=== PATIENT | female | born 1945 | race African-American/Black ===

== ENCOUNTER 2016-06-23 11:28 | Emergency (ER) | payer MEDICARE, OTHER ==
[~2016-06-23] VITALS: Ht 167.6 cm; Wt 92.7 kg
[~2016-06-23 11:28] MED LIST: APIX5TAB PO; FLUT1SPR20; LISI-515 PO; LOVA20TA PO; TIMO0.5S30 EACH EYE; VERA240T16 PO
[2016-06-23 11:31] VITALS: BP 184/102; PULSE 77; RESP 14; TEMP 97.5; O2SAT 96
--- NOTE | 2016-06-23 11:57 | PD ---
HPI Chief Complaint: Hypertension Time Seen by Provider: 11:56 Travel History International Travel<30 days: No Contact w/Intl Traveler<30days: No Traveled to known affect area: No History of Present Illness HPI 71-year-old female presents to the emergency department for evaluation of hypertension. She states that on Thursday, her blood pressure started racing. She states is anywhere from 145-165 systolic on Thursday and Thursday. However, this morning, continued to rise. She went to [facility] And they stated that she go to the emergency department due to her symptoms and blood pressure. She does report a headache. She currently rates a 5/10. She does report a history of chronic migraines and states this is similar. This is not the worst headache of her life. She denies any chest pain or shortness of breath. She is complaining of right leg pain. She was just on vacation in [place] and returned via car on Thursday. 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 Patient is currently on verapamil and lisinopril for blood pressure. She states she was on Eliquis, but is now on a baby aspirin daily. Patient denies any abdominal pain. No vomiting. PFSH Past Medical History Hx Anticoagulant Therapy: Yes Arthritis: Yes Asthma: No Autoimmune Disease: No Blood Disorders: No Anxiety: No Depression: No Heart Rhythm Problems: No Cancer: No Cardiovascular Problems: Yes (HIGH BP) High Cholesterol: No Chemotherapy: No Chest Pain: No Congestive Heart Failure: No COPD: No Cerebrovascular Accident: No Diabetes: No Diminished Hearing: No Deep Vein Thrombosis: Yes (right leg and PE) Endocrine: No Gastrointestinal Disorders: No GERD: No Glaucoma: Yes Genitourinary: No Headaches: Yes (Migraines) Hepatitis: No Hiatal Hernia: No Heparin Induced Thrombocytopen: No Hypertension: Yes Immune Disorder: No Inguinal Hernia: Yes (right side repair) Implanted Vascular Access Dvce: No Kidney Stones: No Musculoskeletal: Yes (Leg & back) Psychiatric: No Reproductive: No Respiratory: Yes (PE) Immunizations Current: Yes Migraines: Yes Myocardial Infarction: No Radiation Therapy: No Renal Failure: No Seizures: No Sickle Cell Disease: No Sleep Apnea: No Thyroid Disease: No Ulcer: No PNEUMOCCOCAL Vaccine (Year): 2010 Menopausal: Yes Tubal Ligation: Yes Past Surgical History Abdominal Surgery: Yes (HERNIA REPAIR) AICD: No Appendectomy: Yes Arteriovenous Shunt: No Cardiac Surgery: No Cholecystectomy: No Ear Surgery: No Endocrine Surgery: No Eye Surgery: Yes (Detached retina) Genitourinary Surgery: No Gynecologic Surgery: Yes (Hysterectomy) Hysterectomy: Yes Insulin Pump: No Joint Replacement: No Oral Surgery: No Pacemaker: No Thoracic Surgery: Yes Other Surgery: Yes Social History Alcohol Use: No Tobacco Use: No Substance Use: No Allergies-Medications (Allergen,Severity, Reaction): Coded Allergies: Tetanus Toxoid (Verified Allergy, Severe, RASH/HIVES, 05/22/16) Codeine (Verified Allergy, Intermediate, AMS, 05/22/16) *MDRO Multi-Drug Resistant Organism (Unverified Adverse Reaction, Unknown , 05/22/16) 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 MRSA PCR Screen negative 10/30/14 and 11/01/14. Cleared per Infection Control Reported Meds & Prescriptions Reported Meds & Active Scripts Active Reported Verapamil SR (Verapamil HCl) 240 Mg Tab 240 Mg PO DAILY Timolol Opth Drops 0.5 % Soln 1 Drop EACH EYE BID Lovastatin 20 Mg Tab 20 Mg PO DAILY Lisinopril 20 Mg Tab 20 Mg PO DAILY Eq Allergy Relief (Fluticasone Propionate (Nasal)) 50 Mcg/Act Spr Eliquis (Apixaban) 5 Mg Tab 5 Mg PO BID Review of Systems Except as stated in HPI: all other systems reviewed are Neg Physical Exam Narrative GENERAL: Well-developed well-nourished female patient, ambulatory. Afebrile. SKIN: Warm and dry. HEAD: Normocephalic. Atraumatic. EYES: No scleral icterus. No injection or drainage. NECK: Supple, trachea midline. No JVD or lymphadenopathy. CARDIOVASCULAR: Regular rate and rhythm without murmurs, gallops, or rubs. RESPIRATORY: Breath sounds equal bilaterally. No accessory muscle use. Lungs sounds are clear to auscultation. GASTROINTESTINAL: Abdomen soft, non-tender, nondistended. MUSCULOSKELETAL: No cyanosis, or edema. Bilateral upper and lower extremity strength 5/5. She does have mild tenderness in the right posterior calf. Negative Homans sign. BACK: Nontender without obvious deformity. No CVA tenderness. Data Data Last Documented VS Vital Signs Date Time Temp Pulse Resp B/P Pulse Ox O2 Delivery O2 Flow Rate FiO2 06/23/16 12:01 95 Room Air 06/23/16 12:01 18 06/23/16 12:01 80 184/67 194/88 06/23/16 11:31 97.5 Orders Electrocardiogram (06/23/16 11:54) Basic Metabolic Panel (Bmp) (06/23/16 11:54) Ckmb (Isoenzyme) Profile (06/23/16 11:54) Complete Blood Count With Diff (06/23/16 11:54) Magnesium (Mg) (06/23/16 11:54) Troponin I (06/23/16 11:54) Ecg Monitoring (06/23/16 11:54) Bilateral Bp Monitoring (06/23/16 11:54) Iv Access Insert/Monitor (06/23/16 11:54) Oximetry (06/23/16 11:54) Oxygen Administration (06/23/16 11:54) Sodium Chloride 0.9% Flush (Ns Flush) (06/23/16 12:00) Hydralazine Inj (Apresoline Inj) (06/23/16 12:00) Us Leg Venous Doppler (06/23/16 ) Clonidine (Catapres) (06/23/16 12:30) CKMB (06/23/16 12:05) CKMB% (06/23/16 12:05) Labs Laboratory Tests Test 06/23/16 12:05 White Blood Count 3.1 TH/MM3 Red Blood Count 4.61 MIL/MM3 Hemoglobin 12.9 GM/DL Hematocrit 38.9 % Mean Corpuscular Volume 84.3 FL Mean Corpuscular Hemoglobin 27.9 PG Mean Corpuscular Hemoglobin 33.1 % Concent Red Cell Distribution Width 14.7 % Platelet Count 229 TH/MM3 Mean Platelet Volume 8.0 FL Neutrophils (%) (Auto) 43.3 % Lymphocytes (%) (Auto) 43.6 % Monocytes (%) (Auto) 8.6 % Eosinophils (%) (Auto) 3.1 % Basophils (%) (Auto) 1.4 % Neutrophils # (Auto) 1.3 TH/MM3 Lymphocytes # (Auto) 1.4 TH/MM3 Monocytes # (Auto) 0.3 TH/MM3 Eosinophils # (Auto) 0.1 TH/MM3 Basophils # (Auto) 0.0 TH/MM3 CBC Comment DIFF FINAL Differential Comment Sodium Level 137 MEQ/L Potassium Level 4.2 MEQ/L Chloride Level 102 MEQ/L Carbon Dioxide Level 29.7 MEQ/L Anion Gap 5 MEQ/L Blood Urea Nitrogen 15 MG/DL Creatinine 0.82 MG/DL Estimat Glomerular Filtration 83 ML/MIN Rate Random Glucose 102 MG/DL Calcium Level 9.1 MG/DL Magnesium Level 2.2 MG/DL Total Creatine Kinase 113 U/L Creatine Kinase MB 0.7 NG/ML Troponin I LESS THAN 0.02 NG/ML MDM Medical Decision Making Medical Screen Exam Complete: Yes Emergency Medical Condition: Yes Medical Record Reviewed: Yes Interpretation(s) Venous Doppler US of the right lower extremity = CONCLUSION: Normal Examination. Differential Diagnosis Hypertension versus hypertensive emergency versus hypertensive urgency versus DVT Narrative Course 71-year-old female presents to the emergency department for evaluation of hypertension. She states her blood pressures elevated at 145-165 systolic. She just able slightly more elevated today. She reports a headache, which is not the most severe headache and is chronic for her. She denies shortness of breath or chest pain. She displayed a right leg pain. Blood pressure will be monitored in the emergency department. CBC, BMP, CK, troponin, magnesium are ordered and pending. Venous Doppler Ultrasound of the right lower extremity is ordered and pending. Patient is given Clonidine 0.1 mg PO. CBC shows slight leukopenia of 3.1. BMP shows no acute abnormalities. CK is 113, CK-MB is 0.7. Troponin is less than 0.02. Magnesium is 2.2. Venous doppler US of the right lower extremity is normal. My attending physician, Dr. Webster, saw patient and is in agreement with plan and disposition. Patient is instructed on the need to follow up with her primary care physician for blood pressure management. She is to return for any acute, worsening of symptoms. Diagnosis Primary Impression: Hypertension Qualified Code: I10 - Essential hypertension Referrals: Primary Care Physician call for appointment Patient Instructions: General Instructions, Hypertension (ED) Additional Instructions: Follow up with your primary care physician. Return to the emergency department for any acute, worsening of symptoms. Med/Other Pt SpecificInfo: No Change to Meds Disposition: 01 DISCHARGE HOME Condition: Stable Sylvie ThompsonP Jun 23, 2016 11:57
[2016-06-23] MEDS ORDERED: hydrALAZINE HCL 20 MG/ML VIAL IV PUSH ONE (12:00)
[2016-06-23] MEDS ORDERED: SODIUM CHLORIDE 0.9% FLUSH 5 ML FLUSH IVF PRN (12:00)
[2016-06-23 12:01] VITALS: BP_SYST 184; BP_SYST 194; BP_DIAS 67; BP_DIAS 88; PULSE 80; RESP 18; O2SAT 96
[2016-06-23 12:16] LABS: AUTOMATED NEUTROPHIL # 1.3 TH/MM3 (1.8-7.7); BASOPHIL % 1.4 % (0.0-2.0); EOSINOPHIL # 0.1 TH/MM3 (0-0.4); EOSINOPHIL % 3.1 % (0.0-4.0); HEMATOCRIT 38.9 % (35.0-46.0); HEMO FLAGS DIFF FINAL; LYMPH % 43.6 % (9.0-44.0); LYMPHOCYTE # 1.4 TH/MM3 (1.0-4.8); MEAN CELL VOLUME 84.3 FL (80.0-100.0); MEAN CORPUSCULAR HEMOGLOBIN 27.9 PG (27.0-34.0); MEAN CORPUSCULAR HGB CONC 33.1 % (32.0-36.0); MONO % 8.6 % (0.0-8.0); NEUT % 43.3 % (16.0-70.0); PLATELET COUNT 229 TH/MM3 (150-450); RED BLOOD COUNT 4.61 MIL/MM3 (4.00-5.30); RED CELL DISTRIBUTION WIDTH 14.7 % (11.6-17.2); WHITE BLOOD COUNT 3.1 TH/MM3 (4.0-11.0)
[2016-06-23] MEDS ORDERED: cloNIDine HCL 0.1 MG TAB PO ONE (12:30)
--- NOTE | 2016-06-23 12:31 | RADRPT ---
EXAM DATE/TIME: 06/23/2016 12:07 [facility] COMPARISON: US LEG BILATERAL VENOUS DOPPLER, October 30, 2014, 17:51. INDICATIONS : Left leg pain. MEDICAL HISTORY : Hypertension. Deep venous thrombosis. Glaucoma. PE. SURGICAL HISTORY : Hysterectomy. Inguinal hernia repair. Eye surgery, detached retina. ENCOUNTER: Initial ACUITY: 3 days PAIN SCORE: 5/10 LOCATION: Right leg. TECHNIQUE: Venous ultrasound of the leg was performed from the inguinal ligament to the proximal calf. Real-carlos e, color Doppler and spectral tracing, compression and augmentation techniques were used. FINDINGS: There is normal compressibility of the deep venous system from the inguinal region to the proximal ca lf. No echogenic clot is seen in the lumen of the common femoral, femoral, popliteal, and posterior tibial veins. There is a normal response of the venous system to proximal and distal augmentation an d respiration. CONCLUSION: Normal examination. Jerry Soliz MD on June 23, 2016 at 12:29 Board Certified Radiologist. This report was verified electronically.
[2016-06-23 12:34] LABS: ANION GAP 5 MEQ/L (5-15); BICARBONATE 29.7 MEQ/L (21.0-32.0); BLOOD UREA NITROGEN 15 MG/DL (7-18); CHLORIDE 102 MEQ/L (98-107); GLOMERULAR FILTRATION RATE 83 ML/MIN (>89); MAGNESIUM 2.2 MG/DL (1.5-2.5); POTASSIUM 4.2 MEQ/L (3.5-5.1); SODIUM (NA) 137 MEQ/L (136-145)
[2016-06-23 12:38] LABS: CREATINE KINASE 113 U/L (26-192)
[2016-06-23 12:45] VITALS: BP 153/71; PULSE 74; RESP 18; TEMP 98.3; O2SAT 98
[2016-06-23 12:51] LABS: CKMB 0.7 NG/ML (0.5-3.6)
--- NOTE | 2016-06-23 13:19 | PD ---
Data Data Last Documented VS Vital Signs Date Time Temp Pulse Resp B/P Pulse Ox O2 Delivery O2 Flow Rate FiO2 06/23/16 12:45 74 18 153/71 98 Room Air 06/23/16 12:45 98.3 Orders Electrocardiogram (06/23/16 11:54) Basic Metabolic Panel (Bmp) (06/23/16 11:54) Ckmb (Isoenzyme) Profile (06/23/16 11:54) Complete Blood Count With Diff (06/23/16 11:54) Magnesium (Mg) (06/23/16 11:54) Troponin I (06/23/16 11:54) Ecg Monitoring (06/23/16 11:54) Bilateral Bp Monitoring (06/23/16 11:54) Iv Access Insert/Monitor (06/23/16 11:54) Oximetry (06/23/16 11:54) Oxygen Administration (06/23/16 11:54) Sodium Chloride 0.9% Flush (Ns Flush) (06/23/16 12:00) Hydralazine Inj (Apresoline Inj) (06/23/16 12:00) Us Leg Venous Doppler (06/23/16 ) Clonidine (Catapres) (06/23/16 12:30) CKMB (06/23/16 12:05) CKMB% (06/23/16 12:05) Labs Laboratory Tests Test 06/23/16 12:05 White Blood Count 3.1 TH/MM3 Red Blood Count 4.61 MIL/MM3 Hemoglobin 12.9 GM/DL Hematocrit 38.9 % Mean Corpuscular Volume 84.3 FL Mean Corpuscular Hemoglobin 27.9 PG Mean Corpuscular Hemoglobin 33.1 % Concent Red Cell Distribution Width 14.7 % Platelet Count 229 TH/MM3 Mean Platelet Volume 8.0 FL Neutrophils (%) (Auto) 43.3 % Lymphocytes (%) (Auto) 43.6 % Monocytes (%) (Auto) 8.6 % Eosinophils (%) (Auto) 3.1 % Basophils (%) (Auto) 1.4 % Neutrophils # (Auto) 1.3 TH/MM3 Lymphocytes # (Auto) 1.4 TH/MM3 Monocytes # (Auto) 0.3 TH/MM3 Eosinophils # (Auto) 0.1 TH/MM3 Basophils # (Auto) 0.0 TH/MM3 CBC Comment DIFF FINAL Differential Comment Sodium Level 137 MEQ/L Potassium Level 4.2 MEQ/L Chloride Level 102 MEQ/L Carbon Dioxide Level 29.7 MEQ/L Anion Gap 5 MEQ/L Blood Urea Nitrogen 15 MG/DL Creatinine 0.82 MG/DL Estimat Glomerular Filtration 83 ML/MIN Rate Random Glucose 102 MG/DL Calcium Level 9.1 MG/DL Magnesium Level 2.2 MG/DL Total Creatine Kinase 113 U/L Creatine Kinase MB 0.7 NG/ML Troponin I LESS THAN 0.02 NG/ML [facility] Supervised Visit with ANIVAL: Yes Narrative Course The history, exam, and medical decision-making in the associated mid-level provider note were completed with my assistance. I reviewed and agree with the findings presented. I attest that I had a [id number] encounter with the patient on the same day, and personally performed and documented my assessment and findings in the medical record. *My assessment and Findings: 71 year-old woman presents emergent arm with elevated blood pressure, some back pain and leg pain. She looks well. She has a history of PE in the past. No DVT now. EKG is normal without any evidence of ischemia. Leg pain is probably sciatica. Don't think she has a lot of evidence of peripheral arterial disease. Recommend continue her current blood pressure medications, outpatient follow-up. Diagnosis Primary Impression: Hypertension Qualified Code: I10 - Essential hypertension Referrals: Primary Care Physician call for appointment Patient Instructions: General Instructions, Hypertension (ED) Additional Instruction: Follow up with your primary care physician. Return to the emergency department for any acute, worsening of symptoms. Disposition: 01 DISCHARGE HOME Condition: Stable Andrade Webster MD Jun 23, 2016 13:19
--- NOTE | 2016-06-25 00:03 | EKG ---
Date Performed: 06/23/2016 Time Performed: 11:54:44 PTAGE: 71 years EKG: Sinus rhythm NORMAL ECG NO PREVIOUS TRACING DOCTOR: Sha Burdick Interpretating Date/Time 06/24/2016 23:52:16
== END 2016-06-23 13:35 | disposition home or self-care (01) ==
LOC: NEPE 11:28
DX: I10 Essential (primary) hypertension (principal); R51 Headache; M79.604 Pain in right leg; Z86.718 Personal history of other venous thrombosis and embolism; Z86.711 Personal history of pulmonary embolism; Z79.82 Long term (current) use of aspirin; Z87.39 Personal history of other diseases of the musculoskeletal system and connective tissue; Z86.69 Personal history of other diseases of the nervous system and sense organs; Z79.899 Other long term (current) drug therapy
CPT/HCPCS: 80048; 82550; 82552; 83735; 84484; 85025; 93005; 93971

== ENCOUNTER 2016-07-05 21:41 | Emergency (ER) | payer OTHER ==
[~2016-07-05] VITALS: Ht 167.6 cm; Wt 92.5 kg
[2016-07-05 21:42] VITALS: BP 187/85; PULSE 82; RESP 16; TEMP 98.5; O2SAT 96
[2016-07-05 22:12] VITALS: BP 153/83; PULSE 80; RESP 18; O2SAT 98
[2016-07-05] MEDS ORDERED: AMLO10TA2 PO (22:16)
[2016-07-05] MEDS ORDERED: ASPI1TAB69 PO (22:17)
[2016-07-05] MEDS ORDERED: FLUT50SP (22:17)
[2016-07-05] MEDS ORDERED: SODIUM CHLORIDE 0.9% FLUSH 5 ML FLUSH IVF PRN (22:30)
--- NOTE | 2016-07-05 22:31 | PD ---
HPI Chief Complaint: Hypertension Time Seen by Provider: 22:25 Travel History International Travel<30 days: No Contact w/Intl Traveler<30days: No Traveled to known affect area: No History of Present Illness HPI 71-year-old female with history of hypertension, had her blood pressure medications changed by primary care physician for better pressure control a week and half ago, presents to the ER today because she is having intermittent dizziness especially with getting up. She states she has also noticed that her blood pressure has been fluctuating. She denies any chest pains, shortness of breath, fevers, vomiting, or any other symptoms. Modifying Factors: Worse with getting up Associated Signs & Symptoms: Dizziness especially with getting up, recent blood pressure medication changed Risk Factors: None PFSH Past Medical History Hx Anticoagulant Therapy: Yes Arthritis: Yes Asthma: No Autoimmune Disease: No Blood Disorders: No Anxiety: No Depression: No Heart Rhythm Problems: No Cancer: No Cardiovascular Problems: Yes (HIGH BP) High Cholesterol: No Chemotherapy: No Chest Pain: No Congestive Heart Failure: No COPD: No Cerebrovascular Accident: No Diabetes: No Diminished Hearing: No Deep Vein Thrombosis: Yes (right leg and PE) Endocrine: No Gastrointestinal Disorders: No GERD: No Glaucoma: Yes Genitourinary: No Headaches: Yes (Migraines) Hepatitis: No Hiatal Hernia: No Heparin Induced Thrombocytopen: No Hypertension: Yes Immune Disorder: No Inguinal Hernia: Yes (right side repair) Implanted Vascular Access Dvce: No Kidney Stones: No Musculoskeletal: Yes (Leg & back) Psychiatric: No Reproductive: No Respiratory: Yes (PE) Immunizations Current: Yes Migraines: Yes Myocardial Infarction: No Radiation Therapy: No Renal Failure: No Seizures: No Sickle Cell Disease: No Sleep Apnea: No Thyroid Disease: No Ulcer: No PNEUMOCCOCAL Vaccine (Year): 2010 Menopausal: Yes Tubal Ligation: Yes Past Surgical History Abdominal Surgery: Yes (HERNIA REPAIR) AICD: No Appendectomy: Yes Arteriovenous Shunt: No Cardiac Surgery: No Cholecystectomy: No Ear Surgery: No Endocrine Surgery: No Eye Surgery: Yes (Detached retina) Genitourinary Surgery: No Gynecologic Surgery: Yes (Hysterectomy) Hysterectomy: Yes Insulin Pump: No Joint Replacement: No Oral Surgery: No Pacemaker: No Thoracic Surgery: Yes Other Surgery: Yes Social History Alcohol Use: No Tobacco Use: No Substance Use: No Allergies-Medications (Allergen,Severity, Reaction): Coded Allergies: Tetanus Toxoid (Verified Allergy, Severe, RASH/HIVES, 07/05/16) Codeine (Verified Allergy, Intermediate, AMS, 07/05/16) *MDRO Multi-Drug Resistant Organism (Unverified Adverse Reaction, Unknown , 07/05/16) 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 MRSA PCR Screen negative 10/30/14 and 11/01/14. Cleared per Infection Control Reported Meds & Prescriptions Reported Meds & Active Scripts Active Reported Aspirin 81 Mg Tabdr 81 Mg PO DAILY Fluticasone Nasal [place] 50 Mcg/Act Naspr 50 Mcg .ROUTE BID 50 mcg/spray Amlodipine (Amlodipine Besylate) 10 Mg Tab 10 Mg PO DAILY Timolol Opth Drops 0.5 % Soln 1 Drop EACH EYE BID Lovastatin 20 Mg Tab 20 Mg PO DAILY Lisinopril 20 Mg Tab 20 Mg PO DAILY Review of Systems Except as stated in HPI: all other systems reviewed are Neg Physical Exam Narrative GENERAL: Well-nourished, well-developed elderly -[place]iss female patient in no acute distress. Awake, alert, oriented 3. SKIN: Warm and dry. HEAD: Normocephalic. EYES: No scleral icterus. No injection or drainage. NECK: Supple, trachea midline. CARDIOVASCULAR: Regular rate and rhythm without murmurs, gallops, or rubs. RESPIRATORY: Breath sounds equal bilaterally. No accessory muscle use. GASTROINTESTINAL: Abdomen soft, non-tender, nondistended. MUSCULOSKELETAL: No cyanosis, or edema. BACK: Nontender without obvious deformity. No CVA tenderness. Data Data Last Documented VS Vital Signs Date Time Temp Pulse Resp B/P Pulse Ox O2 Delivery O2 Flow Rate FiO2 07/06/16 00:05 72 18 157/75 07/06/16 00:01 97 Room Air 07/05/16 21:42 98.5 Orders Electrocardiogram (07/05/16 22:25) Complete Blood Count With Diff (07/05/16 22:25) Comprehensive Metabolic Panel (07/05/16 22:25) Magnesium (Mg) (07/05/16 22:25) Ckmb (Isoenzyme) Profile (07/05/16 22:25) Troponin I (07/05/16 22:25) Urinalysis - C+S If Indicated (07/05/16 22:25) Ecg Monitoring (07/05/16 22:25) Iv Access Insert/Monitor (07/05/16 22:25) Oximetry (07/05/16 22:25) Sodium Chloride 0.9% Flush (Ns Flush) (07/05/16 22:30) Orthostatic Vital Signs (07/05/16 22:25) Labs Laboratory Tests Test 07/05/16 07/06/16 21:05 00:30 White Blood Count 3.9 TH/MM3 Red Blood Count 4.21 MIL/MM3 Hemoglobin 11.6 GM/DL Hematocrit 35.4 % Mean Corpuscular Volume 84.1 FL Mean Corpuscular Hemoglobin 27.6 PG Mean Corpuscular Hemoglobin 32.8 % Concent Red Cell Distribution Width 14.6 % Platelet Count 227 TH/MM3 Mean Platelet Volume 7.8 FL Neutrophils (%) (Auto) 47.5 % Lymphocytes (%) (Auto) 40.5 % Monocytes (%) (Auto) 9.1 % Eosinophils (%) (Auto) 1.9 % Basophils (%) (Auto) 1.0 % Neutrophils # (Auto) 1.8 TH/MM3 Lymphocytes # (Auto) 1.6 TH/MM3 Monocytes # (Auto) 0.4 TH/MM3 Eosinophils # (Auto) 0.1 TH/MM3 Basophils # (Auto) 0.0 TH/MM3 CBC Comment DIFF FINAL Differential Comment Sodium Level 142 MEQ/L Potassium Level 4.0 MEQ/L Chloride Level 108 MEQ/L Carbon Dioxide Level 27.1 MEQ/L Anion Gap 7 MEQ/L Blood Urea Nitrogen 17 MG/DL Creatinine 0.77 MG/DL Estimat Glomerular Filtration 89 ML/MIN Rate Random Glucose 145 MG/DL Calcium Level 8.7 MG/DL Magnesium Level 2.2 MG/DL Total Bilirubin 0.2 MG/DL Aspartate Amino Transf 17 U/L (AST/SGOT) Alanine Aminotransferase 25 U/L (ALT/SGPT) Alkaline Phosphatase 77 U/L Total Creatine Kinase 90 U/L Troponin I LESS THAN 0.02 NG/ML Total Protein 7.4 GM/DL Albumin 3.3 GM/DL Urine Color YELLOW Urine Turbidity CLEAR Urine pH 6.5 Urine Specific [place] 1.017 Urine Protein NEG mg/dL Urine Glucose (UA) NEG mg/dL Urine Ketones NEG mg/dL Urine Occult Blood NEG Urine Nitrite NEG Urine Bilirubin NEG Urine Urobilinogen LESS THAN 2.0 MG/DL Urine Leukocyte Esterase NEG Urine RBC LESS THAN 1 /hpf Urine WBC 1 /hpf Urine Squamous Epithelial <1 /hpf Cells Microscopic Urinalysis Comment CULT NOT INDICATED MDM Medical Decision Making Medical Screen Exam Complete: Yes Emergency Medical Condition: Yes Medical Record Reviewed: Yes Interpretation(s) EKG shows NSR, no ST elevation or depression, and no arrhythmias. No significant T-wave inversions. Laboratory Tests Test 07/05/16 21:05 White Blood Count 3.9 TH/MM3 (4.0-11.0) Monocytes (%) (Auto) 9.1 % (0.0-8.0) Chloride Level 108 MEQ/L (98-107) Random Glucose 145 MG/DL (74-106) Troponin I LESS THAN 0.02 NG/ML (0.02-0.05) Albumin 3.3 GM/DL (3.4-5.0) Differential Diagnosis Intermittent dizziness, orthostasis, intermittent hypertensionmedication side effects versus dehydration versus metabolic issues versus dysrhythmias Narrative Course EKG did not show any signs of dysrhythmias. Metabolic panel is unremarkable for any significant metabolic issues. Cardiac enzymes are negative. Vital signs are stable in the ER and there is no signs of orthostasis. At this point , my plan would be to release her with follow-up to primary care physician. Return for any worsening in symptoms as needed. The plan has discussed with her and she states understanding. Diagnosis Primary Impression: DIZZINESS AND GIDDINESS Disposition: 01 DISCHARGE HOME Condition: Stable José Dumont MD Jul 05, 2016 22:31 José Dumont MD Jul 05, 2016 22:31
[2016-07-05 22:45] VITALS: O2SAT 97
[2016-07-05 23:09] LABS: AUTOMATED NEUTROPHIL # 1.8 TH/MM3 (1.8-7.7); EOSINOPHIL # 0.1 TH/MM3 (0-0.4); EOSINOPHIL % 1.9 % (0.0-4.0); HEMATOCRIT 35.4 % (35.0-46.0); HEMO FLAGS DIFF FINAL; LYMPH % 40.5 % (9.0-44.0); LYMPHOCYTE # 1.6 TH/MM3 (1.0-4.8); MEAN CELL VOLUME 84.1 FL (80.0-100.0); MEAN CORPUSCULAR HEMOGLOBIN 27.6 PG (27.0-34.0); MEAN CORPUSCULAR HGB CONC 32.8 % (32.0-36.0); MONO % 9.1 % (0.0-8.0); NEUT % 47.5 % (16.0-70.0); PLATELET COUNT 227 TH/MM3 (150-450); RED BLOOD COUNT 4.21 MIL/MM3 (4.00-5.30); RED CELL DISTRIBUTION WIDTH 14.6 % (11.6-17.2); WHITE BLOOD COUNT 3.9 TH/MM3 (4.0-11.0)
[2016-07-06 00:01] VITALS: BP 152/76; PULSE 77; RESP 18; O2SAT 97
[2016-07-06 00:03] VITALS: BP 138/67; RESP 18
[2016-07-06 00:04] VITALS: BP 138/70
[2016-07-06 00:05] VITALS: BP 157/75; RESP 18
[2016-07-06 00:25] LABS: ALT (GPT) 25 U/L (10-53); ANION GAP 7 MEQ/L (5-15); AST (GOT) 17 U/L (15-37); BICARBONATE 27.1 MEQ/L (21.0-32.0); BLOOD UREA NITROGEN 17 MG/DL (7-18); CHLORIDE 108 MEQ/L (98-107); GLOMERULAR FILTRATION RATE 89 ML/MIN (>89); MAGNESIUM 2.2 MG/DL (1.5-2.5); SODIUM (NA) 142 MEQ/L (136-145)
[2016-07-06 00:28] LABS: ALKALINE PHOSPHATASE 77 U/L (45-117); TOTAL BILIRUBIN ADULT 0.2 MG/DL (0.2-1.0)
[2016-07-06 00:33] LABS: CREATINE KINASE 90 U/L (26-192)
[2016-07-06 01:02] LABS: BLOOD, URINE NEG (NEG); GLUCOSE,URINE NEG (NEG); KETONE, URINE NEG (NEG); NITRITE,URINE NEG (NEG); PH, URINE 6.5 (5.0-8.5); SQUAMOUS EPITHELIAL CELL URINE <1 /hpf (0-5); URINE COLOR YELLOW (YELLW/STRAW)
[2016-07-06 01:04] LABS: COMMENT (UR) CULT NOT INDICATED; CULTURE IF INDICATED CULT NOT INDICATED
--- NOTE | 2016-07-06 13:38 | EKG ---
Date Performed: 07/06/2016 Time Performed: 00:12:51 PTAGE: 71 years EKG: Sinus rhythm POSSIBLE LEFT ATRIAL ENLARGEMENT NONSPECIFIC T-WAVE ABNORMALITY BORDERLINE ECG Compared to prior tra cing no significant change PREVIOUS TRACING : 06/23/2016 11.54 DOCTOR: Angel Molina Interpretating Date/Time 07/06/2016 13:36:36
== END 2016-07-06 01:46 | disposition home or self-care (01) ==
LOC: NEPC 21:41
DX: R42 Dizziness and giddiness (principal); I10 Essential (primary) hypertension; Z86.718 Personal history of other venous thrombosis and embolism; R94.31 Abnormal electrocardiogram [ECG] [EKG]
CPT/HCPCS: 80053; 81001; 82550; 83735; 84484; 85025; 93005

== ENCOUNTER 2016-10-02 07:01 | Observation (INO) | payer OTHER ==
[2016-10-02] VITALS (7 sets, daily range): BP systolic 123–195; BP diastolic 72–104; PULSE 67–94; RESP 16–24; TEMP 97–99.1; O2SAT 95–99
[~2016-10-02] VITALS: Ht 167.6 cm; Wt 92.0 kg
[~2016-10-02 07:01] MED LIST changes: +AMLO10TA2 PO; -APIX5TAB PO; +ASPI1TAB69 PO; -FLUT1SPR20; +FLUT50SP; -VERA240T16 PO
[2016-10-02] MEDS ORDERED: SODIUM CHLORIDE 0.9% FLUSH 10 ML FLUSH IV FLUSH PRN ×2 (07:30→10:30)
[2016-10-02] MEDS ORDERED: MORPHINE SULFATE 4 MG/ML INJ IV PUSH ONE ×2 (07:30→10:15)
[2016-10-02] MEDS ORDERED: SODIUM CHLOR 0.9% 1000 ML INJ 1,000 ML IV SCH (07:30)
[2016-10-02] MEDS ORDERED: ONDANSETRON HCL 4 MG/2 ML VIAL IVP ONE (07:30)
--- NOTE | 2016-10-02 07:33 | PD ---
HPI Chief Complaint: Abdominal Pain Time Seen by Provider: 07:21 Travel History International Travel<30 days: No Contact w/Intl Traveler<30days: No Traveled to known affect area: No History of Present Illness HPI This is a 71-year-old female who presents to the emergency department with abdominal pain that started yesterday, constant, severe, worse in the upper abdomen, associated with some nausea and the feeling like she has to have a bowel movement. She denies any fevers, chills, vomiting, diarrhea, or dysuria. She has a history of an appendectomy and a hernia repair. She has been on diclofenac for her back which she thinks was bothering her stomach and she recently decreased the dose. She also has a history of blood clots for which currently she only takes aspirin. PFSH Past Medical History Hx Anticoagulant Therapy: Yes Arthritis: Yes Asthma: No Autoimmune Disease: No Blood Disorders: No Anxiety: No Depression: No Heart Rhythm Problems: No Cancer: No Cardiovascular Problems: Yes (htn) High Cholesterol: No Chemotherapy: No Chest Pain: No Congestive Heart Failure: No COPD: No Cerebrovascular Accident: No Diabetes: No Diminished Hearing: No Deep Vein Thrombosis: Yes (right leg and PE) Endocrine: No Gastrointestinal Disorders: No GERD: No Glaucoma: Yes Genitourinary: No Headaches: Yes (Migraines) Hepatitis: No Hiatal Hernia: No Heparin Induced Thrombocytopen: No Hypertension: Yes Immune Disorder: No Inguinal Hernia: Yes (right side repair) Implanted Vascular Access Dvce: No Kidney Stones: No Musculoskeletal: Yes (Leg & back) Psychiatric: No Reproductive: No Respiratory: Yes (PE) Immunizations Current: Yes Migraines: Yes Myocardial Infarction: No Radiation Therapy: No Renal Failure: No Seizures: No Sickle Cell Disease: No Sleep Apnea: No Thyroid Disease: No Ulcer: No Tetanus Vaccination: Never Vaccinated Influenza Vaccination: No PNEUMOCCOCAL Vaccine (Year): 2010 ?: Not Menopausal: Yes Tubal Ligation: Yes Past Surgical History Abdominal Surgery: Yes (HERNIA REPAIR) AICD: No Appendectomy: Yes Arteriovenous Shunt: No Cardiac Surgery: No Cholecystectomy: No Ear Surgery: No Endocrine Surgery: No Eye Surgery: Yes (Detached retina) Genitourinary Surgery: No Gynecologic Surgery: Yes (Hysterectomy) Hysterectomy: Yes Insulin Pump: No Joint Replacement: No Oral Surgery: No Pacemaker: No Thoracic Surgery: Yes Other Surgery: Yes Social History Alcohol Use: No Tobacco Use: No Substance Use: No Allergies-Medications (Allergen,Severity, Reaction): Coded Allergies: Tetanus Toxoid (Verified Allergy, Severe, RASH/HIVES, 10/02/16) Codeine (Verified Allergy, Intermediate, AMS, 10/02/16) *MDRO Multi-Drug Resistant Organism (Unverified Adverse Reaction, Unknown , 10/02/16) 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 MRSA PCR Screen negative 10/30/14 and 11/01/14. Cleared per Infection Control Reported Meds & Prescriptions Reported Meds & Active Scripts Active Reported Pantoprazole (Pantoprazole Sodium) 20 Mg Tab 20 Mg PO DAILY Diclofenac Sodium ER 24 HR (Diclofenac Sodium) 100 Mg Stefani 100 Mg PO DAILY PRN Aspirin 81 Mg Tabdr 81 Mg PO DAILY Fluticasone Nasal [place] 50 Mcg/Act Naspr 50 Mcg .ROUTE BID 50 mcg/spray Amlodipine (Amlodipine Besylate) 10 Mg Tab 10 Mg PO DAILY Timolol Opth Drops 0.5 % Soln 1 Drop EACH EYE BID Lovastatin 20 Mg Tab 20 Mg PO DAILY Lisinopril 20 Mg Tab 20 Mg PO DAILY Review of Systems Except as stated in HPI: all other systems reviewed are Neg Physical Exam Narrative GENERAL: Uncomfortable appearing. SKIN: Focused skin assessment warm and dry. HEAD: Atraumatic. Normocephalic. EYES: Pupils equal and round. No injection or drainage. ENT: Moist mucous membranes NECK: Trachea midline. CARDIOVASCULAR: Regular rate and rhythm. No murmur appreciated. RESPIRATORY: Clear to auscultation. Breath sounds equal bilaterally. GASTROINTESTINAL: Abdomen soft, tender to palpation in the epigastrium, left upper quadrant and left lower quadrant with some guarding in the upper abdomen. Bowel sounds throughout. MUSCULOSKELETAL: No obvious deformities. NEUROLOGICAL: Awake and alert. No obvious cranial nerve deficits. Moving all extremities. PSYCHIATRIC: Appropriate mood and affect; insight and judgment normal. Data Data Last Documented VS Vital Signs Date Time Temp Pulse Resp B/P Pulse Ox O2 Delivery O2 Flow Rate FiO2 10/02/16 08:26 18 10/02/16 08:04 78 10/02/16 07:33 133/82 95 10/02/16 07:31 98.0 Room Air Orders Complete Blood Count With Diff (10/02/16 07:30) Comprehensive Metabolic Panel (10/02/16 07:30) Lipase (10/02/16 07:30) Lactic Acid (10/02/16 07:30) Urinalysis - C+S If Indicated (10/02/16 07:30) Ct Abd/Pel W Iv Contrast(Rout) (10/02/16 07:30) Iv Access Insert/Monitor (10/02/16 07:30) Ecg Monitoring (10/02/16 07:30) Oximetry (10/02/16 07:30) Morphine Inj (Morphine Inj) (10/02/16 07:30) Ondansetron Inj (Zofran Inj) (10/02/16 07:30) Sodium Chlor 0.9% 1000 Ml Inj (Ns 1000 M (10/02/16 07:30) Sodium Chloride 0.9% Flush (Ns Flush) (10/02/16 07:30) Electrocardiogram (10/02/16 07:30) Iohexol 350 Inj (Omnipaque 350 Inj) (10/02/16 08:57) Morphine Inj (Morphine Inj) (10/02/16 10:15) Admit Order (Ed Use Only) (10/02/16 10:18) Labs Laboratory Tests Test 10/02/16 07:45 White Blood Count 3.5 TH/MM3 Red Blood Count 4.52 MIL/MM3 Hemoglobin 12.4 GM/DL Hematocrit 37.9 % Mean Corpuscular Volume 83.8 FL Mean Corpuscular Hemoglobin 27.4 PG Mean Corpuscular Hemoglobin 32.7 % Concent Red Cell Distribution Width 14.7 % Platelet Count 228 TH/MM3 Mean Platelet Volume 8.3 FL Neutrophils (%) (Auto) 51.8 % Lymphocytes (%) (Auto) 34.5 % Monocytes (%) (Auto) 10.8 % Eosinophils (%) (Auto) 2.3 % Basophils (%) (Auto) 0.6 % Neutrophils # (Auto) 1.8 TH/MM3 Lymphocytes # (Auto) 1.2 TH/MM3 Monocytes # (Auto) 0.4 TH/MM3 Eosinophils # (Auto) 0.1 TH/MM3 Basophils # (Auto) 0.0 TH/MM3 CBC Comment DIFF FINAL Differential Comment Urine Color LIGHT-YELLOW Urine Turbidity CLEAR Urine pH 7.0 Urine Specific [place] 1.011 Urine Protein NEG mg/dL Urine Glucose (UA) NEG mg/dL Urine Ketones NEG mg/dL Urine Occult Blood NEG Urine Nitrite NEG Urine Bilirubin NEG Urine Urobilinogen LESS THAN 2.0 MG/DL Urine Leukocyte Esterase TRACE Urine RBC LESS THAN 1 /hpf Urine WBC 1 /hpf Urine Squamous Epithelial 2 /hpf Cells Microscopic Urinalysis Comment CULT NOT INDICATED Sodium Level 138 MEQ/L Potassium Level 4.5 MEQ/L Chloride Level 105 MEQ/L Carbon Dioxide Level 25.6 MEQ/L Anion Gap 7 MEQ/L Blood Urea Nitrogen 16 MG/DL Creatinine 0.80 MG/DL Estimat Glomerular Filtration 85 ML/MIN Rate Random Glucose 129 MG/DL Lactic Acid Level 1.2 mmol/L Calcium Level 9.0 MG/DL Total Bilirubin 0.3 MG/DL Aspartate Amino Transf 21 U/L (AST/SGOT) Alanine Aminotransferase 25 U/L (ALT/SGPT) Alkaline Phosphatase 73 U/L Total Protein 7.5 GM/DL Albumin 3.5 GM/DL Lipase 134 U/L [facility] Medical Decision Making Medical Screen Exam Complete: Yes Emergency Medical Condition: Yes Interpretation(s) Afebrile, mild tachycardia, hypertensive White count is 3.5 with 10% monocytes Electrolytes are reassuring Lactic acid is 1.2 Lipase is normal Urinalysis is negative for infection Last 24 hours Impressions Abdomen/Pelvis CT 10/02/16 0730 Signed Impressions: Service Date/Time: September 08:53 - CONCLUSION: Proximal small bowel ileus without apparent obstructive process. Colonic diverticulosis without evidence of active inflammation. No evidence of suspicious mass or lymphadenopathy. Stable right renal cyst. Tima Calix MD Differential Diagnosis Bowel obstruction, perforated ulcer, gastritis, peptic ulcer disease, gastroenteritis Narrative Course This is a 71-year-old female who presents to the emergency department with abdominal pain that's been going on for 2 days that is worse today. She is placed in a monitor and an IV was established. She was given IV morphine 2 but her pain persists. Labs are obtained which were reassuring. CT imaging demonstrates a small bowel ileus. I think patient warrants observation, bowel rest, IV hydration and pain control. Physician Communication Physician Communication Discussed with Dr. Blum Diagnosis Primary Impression: Ileus Admitting Information Admitting Physician Requests: Observation Maryjane Cueva MD Oct 02, 2016 07:33
[2016-10-02 07:59] LABS: AUTOMATED NEUTROPHIL # 1.8 TH/MM3 (1.8-7.7); BASOPHIL % 0.6 % (0.0-2.0); EOSINOPHIL # 0.1 TH/MM3 (0-0.4); EOSINOPHIL % 2.3 % (0.0-4.0); HEMATOCRIT 37.9 % (35.0-46.0); HEMO FLAGS DIFF FINAL; LYMPH % 34.5 % (9.0-44.0); LYMPHOCYTE # 1.2 TH/MM3 (1.0-4.8); MEAN CELL VOLUME 83.8 FL (80.0-100.0); MEAN CORPUSCULAR HEMOGLOBIN 27.4 PG (27.0-34.0); MEAN CORPUSCULAR HGB CONC 32.7 % (32.0-36.0); MONO % 10.8 % (0.0-8.0); NEUT % 51.8 % (16.0-70.0); PLATELET COUNT 228 TH/MM3 (150-450); RED BLOOD COUNT 4.52 MIL/MM3 (4.00-5.30); RED CELL DISTRIBUTION WIDTH 14.7 % (11.6-17.2); WHITE BLOOD COUNT 3.5 TH/MM3 (4.0-11.0)
[2016-10-02 08:06] LABS: BLOOD, URINE NEG (NEG); GLUCOSE,URINE NEG (NEG); KETONE, URINE NEG (NEG); NITRITE,URINE NEG (NEG); SQUAMOUS EPITHELIAL CELL URINE 2 /hpf (0-5); URINE COLOR LIGHT-YELLOW (YELLW/STRAW)
[2016-10-02 08:08] LABS: COMMENT (UR) CULT NOT INDICATED; CULTURE IF INDICATED CULT NOT INDICATED
[2016-10-02 08:18] LABS: ALKALINE PHOSPHATASE 73 U/L (45-117); ALT (GPT) 25 U/L (10-53); TOTAL BILIRUBIN ADULT 0.3 MG/DL (0.2-1.0)
[2016-10-02] MEDS ORDERED: PANT20TA2 PO (08:23)
[2016-10-02] MEDS ORDERED: DICL100T PO (08:23)
[2016-10-02 08:28] LABS: ANION GAP 7 MEQ/L (5-15); AST (GOT) 21 U/L (15-37); BICARBONATE 25.6 MEQ/L (21.0-32.0); BLOOD UREA NITROGEN 16 MG/DL (7-18); CHLORIDE 105 MEQ/L (98-107); GLOMERULAR FILTRATION RATE 85 ML/MIN (>89); SODIUM (NA) 138 MEQ/L (136-145)
[2016-10-02 08:34] LABS: POTASSIUM 4.5 MEQ/L (3.5-5.1)
[2016-10-02] MEDS ORDERED: IOHEXOL 350 MG/ML 10 ML VIAL (for RAD DIAG) IV ONE (08:57)
--- NOTE | 2016-10-02 09:18 | RADRPT ---
EXAM DATE/TIME: 10/02/2016 08:53 [facility] COMPARISON: CT ABDOMEN & PELVIS W CONTRAST, May 30, 2015, 2:45. INDICATIONS : Medial abdominal pain. IV CONTRAST: 93 cc Omnipaque 350 (iohexol) IV ORAL CONTRAST: No oral contrast ingested. RADIATION DOSE: 18.88 CTDIvol (mGy) MEDICAL HISTORY : Hypertension. Pulmonary embolism. SURGICAL HISTORY : Appendectomy. Umbilical hernia repair.Hysterectomy.Spinal surgery. ENCOUNTER: Initial ACUITY: 1 day PAIN SCALE: 5/10 LOCATION: middle abdomen. TECHNIQUE: Volumetric scanning of the abdomen and pelvis was performed. Using automated exposure control and ad justment of the mA and/or kV according to patient size, radiation dose was kept as low as reasonably achievable to obtain optimal diagnostic quality images. FINDINGS: LOWER LUNGS: The visualized lower lungs are clear. LIVER: Homogeneous density without lesion. There is no dilation of the biliary tree. No calcified [place]ston es. SPLEEN: Normal size without lesion. PANCREAS: Within normal limits. KIDNEYS: Simple right renal cyst is stable kidneys are otherwise normal in size and shape. There is no mass, stone or hydronephrosis. ADRENAL GLANDS: Within normal limits. VASCULAR: There is no aortic aneurysm. BOWEL/MESENTERY: Multiple dilated loops of proximal jejunum with air fluid levels are identified. There is a transitio n in the mid to distal jejunum. The ileum and colon are unremarkable. There is no obvious obstructing process. Multiple colonic diverticula are again identified. There is no evidence of diverticulitis. ABDOMINAL WALL: Within normal limits. RETROPERITONEUM: There is no lymphadenopathy. BLADDER: No wall thickening or mass. REPRODUCTIVE: Within normal limits. INGUINAL: There is no lymphadenopathy or hernia. MUSCULOSKELETAL: Within normal limits for patient age. CONCLUSION: Proximal small bowel ileus without apparent obstructive process. Colonic diverticulosis without evidence of active inflammation. No evidence of suspicious mass or lymphadenopathy. Stable right renal cyst. Tima Calix MD on October 02, 2016 at 9:06 Board Certified Radiologist. This report was verified electronically.
[2016-10-02] MEDS ORDERED: ONDANSETRON HCL 4 MG/2 ML VIAL IVP PRN (10:30)
[2016-10-02] MEDS: DOCUSATE SODIUM 100 MG CAP PO SCH ×2 (10:30→20:47)
[2016-10-02] MEDS ORDERED: PANTOPRAZOLE SOD 20 MG DELAYED RELEASE TAB PO SCH (10:30)
[2016-10-02] MEDS: ASPIRIN EC 81 MG TABEC PO SCH (10:30)
[2016-10-02] MEDS ORDERED: MORPHINE SULFATE 4 MG/ML INJ IV PUSH PRN (10:30)
[2016-10-02] MEDS ORDERED: ACETAMINOPHEN/HYDROcodone 325 MG/5 MG TAB PO PRN (10:30)
[2016-10-02] MEDS ORDERED: NALOXONE HCL 0.4 MG/ML AMP IV PRN (10:30)
[2016-10-02] MEDS: HEPARIN SODIUM - SQ 10,000 UNITS/ML VIAL SQ SCH (12:39)
[2016-10-02] MEDS: D5-1/2 NS + KCL 20 MEQ INJ 1,000 ML IV SCH ×2 (12:40→20:48)
--- NOTE | 2016-10-02 14:15 | HHI.HP ---
[facility] Service [facility] Primary Care Physician Will Yang MD Admission Diagnosis small bowel ileus Diagnoses: Chief Complaint: Abdominal pain. Travel History International Travel<30 Days: No Contact w/Intl Traveler <30 Da: No Traveled to Known Affected Are: No History of Present Illness 71-year-old female with a medical history significant for hypertension, hyperlipidemia, GERD, chronic back pain presented with complaint of persistent abdominal pain. Patient reports a chronic history of back pain. She was started on baclofen yesterday. She took the first dose yesterday afternoon, since then she has been having persistent abdominal cramps. She did not have any nausea or vomiting. However she is having nausea now since receiving morphine. She denies any unusual food exposure. No sick contacts. She does have a history of multiple abdominal surgery including appendectomy and hysterectomy. Abdominal CT in the emergency room consistent with an ileus. She denies any fevers or chills. Last normal bowel movement was this morning. Review of Systems Constitutional: DENIES: Fever, Chills Endocrine: DENIES: Polyuria, Polyphagia Respiratory: DENIES: Cough, Shortness of breath Cardiovascular: DENIES: Chest pain Gastrointestinal: COMPLAINS OF: Abdominal pain Past Family Social History Past Medical History Chronic back pain Hypertension Hyperlipidemia Gastritis History of DVT and PE while on hormone replacement therapy for menopause. Past Surgical History Back surgery 3 Hysterectomy Reported Medications Last Impressions Abdomen/Pelvis CT 10/02/16 0730 Signed Impressions: Service Date/Time: , October 02, 2016 08:53 - CONCLUSION: Proximal small bowel ileus without apparent obstructive process. Colonic diverticulosis without evidence of active inflammation. No evidence of suspicious mass or lymphadenopathy. Stable right renal cyst. Tima Calix MD Allergies: Coded Allergies: Tetanus Toxoid (Verified Allergy, Severe, RASH/HIVES, 10/02/16) Codeine (Verified Allergy, Intermediate, AMS, 10/02/16) *MDRO Multi-Drug Resistant Organism (Unverified Adverse Reaction, Unknown , 10/02/16) MRSA (buttock wound) - 04/2014 MRSA PCR Screens NEGATIVE - 10/30/14 and 11/01/14 CLEARED PER INFECTION CONTROL PROTOCOL Family History Reviewed and noncontributory. Social History Never smoked. No alcohol or illicit drugs. Physical Exam Vital Signs Vital Signs Date Time Temp Pulse Resp B/P Pulse Ox O2 Delivery O2 Flow Rate FiO2 10/02/16 13:56 97.5 67 20 125/72 97 10/02/16 12:04 20 10/02/16 08:26 18 10/02/16 08:04 78 18 10/02/16 07:33 80 16 133/82 95 10/02/16 07:31 98.0 70 18 123/74 99 Room Air 10/02/16 07:04 97.5 94 24 195/104 99 Room Air Physical Exam GENERAL: This is a well-nourished, well-developed patient, in no apparent distress. SKIN: No rashes, ecchymoses or lesions. Cool and dry. HEAD: Atraumatic. Normocephalic. No temporal or scalp tenderness. EYES: Pupils equal round and reactive. Extraocular motions intact. No scleral icterus. No injection or drainage. ENT: Nose without bleeding, purulent drainage or septal hematoma. Throat without erythema, tonsillar hypertrophy or exudate. Uvula midline. Airway patent. NECK: Trachea midline. No JVD or lymphadenopathy. Supple, nontender, no meningeal signs. CARDIOVASCULAR: Regular rate and rhythm without murmurs, gallops, or rubs. RESPIRATORY: Clear to auscultation. Breath sounds equal bilaterally. No wheezes , rales, or rhonchi. GASTROINTESTINAL: Abdomen soft, nondistended. Mild diffuse tenderness to palpation. No palpable masses. No guarding. MUSCULOSKELETAL: Extremities without clubbing, cyanosis, or edema. No joint tenderness, effusion, or edema noted. No calf tenderness. Negative Homans sign bilaterally. NEUROLOGICAL: Awake and alert. Cranial nerves II through XII intact. Motor and sensory grossly within normal limits. Five out of 5 muscle strength in all muscle groups. Normal speech. Laboratory Laboratory Tests Test 10/02/16 07:45 White Blood Count 3.5 Red Blood Count 4.52 Hemoglobin 12.4 Hematocrit 37.9 Mean Corpuscular Volume 83.8 Mean Corpuscular Hemoglobin 27.4 Mean Corpuscular Hemoglobin 32.7 Concent Red Cell Distribution Width 14.7 Platelet Count 228 Mean Platelet Volume 8.3 Neutrophils (%) (Auto) 51.8 Lymphocytes (%) (Auto) 34.5 Monocytes (%) (Auto) 10.8 Eosinophils (%) (Auto) 2.3 Basophils (%) (Auto) 0.6 Neutrophils # (Auto) 1.8 Lymphocytes # (Auto) 1.2 Monocytes # (Auto) 0.4 Eosinophils # (Auto) 0.1 Basophils # (Auto) 0.0 CBC Comment DIFF FINAL Differential Comment Urine Color LIGHT-YELLOW Urine Turbidity CLEAR Urine pH 7.0 Urine Specific [place] 1.011 Urine Protein NEG Urine Glucose (UA) NEG Urine Ketones NEG Urine Occult Blood NEG Urine Nitrite NEG Urine Bilirubin NEG Urine Urobilinogen LESS THAN 2.0 Urine Leukocyte Esterase TRACE Urine RBC LESS THAN 1 Urine WBC 1 Urine Squamous Epithelial 2 Cells Microscopic Urinalysis Comment CULT NOT INDICATED Sodium Level 138 Potassium Level 4.5 Chloride Level 105 Carbon Dioxide Level 25.6 Anion Gap 7 Blood Urea Nitrogen 16 Creatinine 0.80 Estimat Glomerular Filtration 85 Rate Random Glucose 129 Lactic Acid Level 1.2 Calcium Level 9.0 Total Bilirubin 0.3 Aspartate Amino Transf 21 (AST/SGOT) Alanine Aminotransferase 25 (ALT/SGPT) Alkaline Phosphatase 73 Total Protein 7.5 Albumin 3.5 Lipase 134 Result Diagram: 10/02/16 0745 10/02/16 0745 Imaging Last Impressions Abdomen/Pelvis CT 10/02/16 0730 Signed Impressions: Service Date/Time: September 08:53 - CONCLUSION: Proximal small bowel ileus without apparent obstructive process. Colonic diverticulosis without evidence of active inflammation. No evidence of suspicious mass or lymphadenopathy. Stable right renal cyst. Tima Calix MD Assessment and Plan Problem List: (1) Ileus ICD Code: K56.7 Status: Acute (2) Abdominal pain ICD Code: R10.9 Status: Acute (3) Hypertension ICD Code: I10 Status: Acute (4) Chronic back pain ICD Code: G89.29 Status: Acute (5) Hyperlipidemia ICD Code: E78.5 Status: Acute Assessment and Plan 71-year-old female with: Ileus/abdominal pain: CT images personally reviewed. No obstruction. Could be medication related. She just started diclofenac. - Supportive care. NPO, advance diet as tolerated - Pain control. Patient experiencing nausea with morphine, discussed with RN to try [place] instead. - IV fluid Hypertension: - Continue lisinopril and amlodipine Chronic back pain: Patient reports she had an EGD couple of weeks ago which showed gastritis. - Advised against using NSAIDs at this point. - Low-dose [place] seems appropriate. Hyperlipidemia: - Continue statin GI prophylaxis: PPI. Stool softener PRN constipation. DVT PPx: Heparin subcutaneous. Discussed Condition With ER physician and RN. Joann Blum MD Oct 02, 2016 14:15
--- NOTE | 2016-10-02 14:53 | EKG ---
Date Performed: 10/02/2016 Time Performed: 08:03:41 PTAGE: 71 years EKG: Sinus rhythm POSSIBLE LEFT ATRIAL ENLARGEMENT BORDERLINE ECG NO PREVIOUS TRACING DOCTOR: Darrick Hui Interpretating Date/Time 10/02/2016 14:52:08
[2016-10-02] MEDS: TIMOLOL MALEATE 0.5% OPHT SOLN 5 ML BTL EACH EYE SCH (20:46)
[2016-10-02] MEDS: SODIUM CHLORIDE 0.9% FLUSH 10 ML FLUSH IV FLUSH SCH (20:47)
[2016-10-03 00:04] VITALS: BP 126/63; PULSE 83; RESP 20; TEMP 100.2; O2SAT 95
[2016-10-03] MEDS: HEPARIN SODIUM - SQ 10,000 UNITS/ML VIAL SQ SCH (01:06)
[2016-10-03 04:28] VITALS: BP 107/58; PULSE 88; RESP 20; TEMP 98.3; O2SAT 95
[2016-10-03] MEDS ORDERED: TRAM50TA PO (07:59)
--- NOTE | 2016-10-03 07:59 | HHI.DCPOC ---
Discharge Care Plan Diagnosis: (1) Ileus (2) Abdominal pain (3) Hypertension (4) Chronic back pain Goals to Promote Your Health * To prevent worsening of your condition and complications * To maintain your health at the optimal level Directions to Meet Your Goals Take your medications as prescribed Follow your dietary instruction Follow activity as directed Keep your appointments as scheduled Take your immunizations and boosters as scheduled If your symptoms worsen call your PCP, if no PCP go to Urgent Care Center or Emergency Room Smoking is Dangerous to Your Health. Avoid second hand smoke Call the 24-hour hour crisis hotline for domestic abuse at Joann Blum MD Oct 03, 2016 07:59
[2016-10-03] MEDS: D5-1/2 NS + KCL 20 MEQ INJ 1,000 ML IV SCH (08:00)
--- NOTE | 2016-10-03 08:03 | HHI.PR ---
Subjective Remarks Patient reports she is feeling much better this morning. No more nausea or vomiting. Abdominal pain has significantly improved. Did not require any pain medication since yesterday. Feels comfortable with going home. Objective Vitals Vital Signs Date Time Temp Pulse Resp B/P Pulse Ox O2 Delivery O2 Flow Rate FiO2 10/03/16 04:28 98.3 88 20 107/58 95 10/03/16 00:04 100.2 83 20 126/63 95 10/02/16 19:30 99.1 85 20 151/82 95 10/02/16 15:24 97.0 67 20 126/72 96 10/02/16 13:56 97.5 67 20 125/72 97 10/02/16 12:04 20 10/02/16 08:26 18 10/02/16 08:04 78 18 I/O 10/02/16 10/02/16 10/02/16 10/03/16 10/03/16 10/03/16 07:00 15:00 23:00 07:00 15:00 23:00 Intake Total 2457 ml Balance 2457 ml Intake Oral 720 ml IV Total 1737 ml # Voids 2 Result Diagram: 10/02/16 0745 10/02/16 0745 Imaging Last Impressions Abdomen/Pelvis CT 10/02/16 0730 Signed Impressions: Service Date/Time: September 08:53 - CONCLUSION: Proximal small bowel ileus without apparent obstructive process. Colonic diverticulosis without evidence of active inflammation. No evidence of suspicious mass or lymphadenopathy. Stable right renal cyst. Tima Calix MD Objective Remarks GENERAL: This is a well-nourished, well-developed patient, in no apparent distress. CARDIOVASCULAR: Normal rate and regular rhythm without murmurs, gallops, or rubs. RESPIRATORY: Good respiratory efforts. Breath sounds equal and clear to auscultation bilaterally. GASTROINTESTINAL: Abdomen soft, non-tender, non-distended. Normal active bowel sounds MUSCULOSKELETAL: Extremities without cyanosis, or edema. NEURO: Alert & Oriented x4 to person, place, time, situation. Moves all ext x4 PSYCH: Appropriate mood and affect. A/P Problem List: (1) Ileus ICD Code: K56.7 Status: Acute (2) Abdominal pain ICD Code: R10.9 Status: Acute (3) Hypertension ICD Code: I10 Status: Acute (4) Chronic back pain ICD Code: G89.29 Status: Acute (5) Hyperlipidemia ICD Code: E78.5 Status: Acute Assessment and Plan 71-year-old female with: Ileus/abdominal pain: CT images personally reviewed. No obstruction. Could be medication related. She just started diclofenac. Patient significantly improved with supportive care including IV fluids, pain control. She had nausea with administration of morphine. Discretely resolved. She tolerated advancement of her diet. The patient is discharged home in good condition. She is advised to follow up outpatient with her pain management doctor to consider other pain medication. She was given a limited supply of tramadol to be used as needed. Hypertension: - Continue home dose lisinopril and amlodipine Chronic back pain: Patient reports she had an EGD couple of weeks ago which showed gastritis. - Advised against using NSAIDs at this point. Hyperlipidemia: - Continue statin Discharge Planning Discharge home in good condition Follow up with PCP Activity: Regular as tolerated Diet: Heart healthy Meds: Per med rec Joann Blum MD Oct 03, 2016 08:03
[2016-10-03] MEDS: SODIUM CHLORIDE 0.9% FLUSH 10 ML FLUSH IV FLUSH SCH (08:11)
[2016-10-03 08:15] VITALS: BP 123/66; PULSE 79; RESP 17; TEMP 98.2; O2SAT 96
[2016-10-03 08:15] LABS: BICARBONATE 28.9 MEQ/L (21.0-32.0); POTASSIUM 3.9 MEQ/L (3.5-5.1)
[2016-10-03] MEDS: PRAVASTATIN SOD 20 MG TAB PO SCH ×2 (09:00→09:33)
[2016-10-03] MEDS ORDERED: PANTOPRAZOLE SOD 40 MG DELAYED RELEASE TAB PO SCH (09:00)
[2016-10-03] MEDS: LISINOPRIL 20 MG TAB PO SCH ×2 (09:00→09:33)
[2016-10-03] MEDS: ASPIRIN EC 81 MG TABEC PO SCH (09:33)
[2016-10-03] MEDS: TIMOLOL MALEATE 0.5% OPHT SOLN 5 ML BTL EACH EYE SCH (09:33)
[2016-10-03] MEDS: DOCUSATE SODIUM 100 MG CAP PO SCH (09:33)
== END 2016-10-03 10:56 | disposition home or self-care (01) ==
LOC: NEPC 07:01 → NEDA 10:19 → NEPHCDU 11:43
PROVIDERS: ADMIT Family Medicine; ATTEND Family Medicine
DX: K56.7 Ileus, unspecified (principal); I10 Essential (primary) hypertension; E78.5 Hyperlipidemia, unspecified; M54.9 Dorsalgia, unspecified; G89.29 Other chronic pain; K21.9 Gastro-esophageal reflux disease without esophagitis; M19.90 Unspecified osteoarthritis, unspecified site; H40.9 Unspecified glaucoma; Z86.718 Personal history of other venous thrombosis and embolism; Z86.711 Personal history of pulmonary embolism; Z88.5 Allergy status to narcotic agent; Z88.7 Allergy status to serum and vaccine; Z79.82 Long term (current) use of aspirin
CPT/HCPCS: 74177; 80048; 80053; 81001; 83605; 83690; 85025; 87641; 93005; 96361; 96374; 96375; 99285; G0378; J1644; J2270; J2405; J3480; J7030; Q9967

== ENCOUNTER 2016-12-27 00:27 | Emergency (ER) | payer OTHER ==
[~2016-12-27] VITALS: Ht 167.6 cm; Wt 94.0 kg
[~2016-12-27 00:27] MED LIST changes: +PANT20TA2 PO; +TRAM50TA PO
[2016-12-27 00:41] VITALS: BP 155/93; PULSE 71; RESP 20; TEMP 98.1; O2SAT 100
--- NOTE | 2016-12-27 00:50 | PD ---
HPI Chief Complaint: Headache Time Seen by Provider: 00:44 Travel History International Travel<30 days: No Contact w/Intl Traveler<30days: No Traveled to known affect area: No History of Present Illness HPI C/O VITALE, SINCE YESTERDAY, RIGHT SIDED (FOREHEAD AND RT TEMPOROPARIETAL AREA), , NO PHOTOPHOBIA, NO ALLEVIATING OR AGGRAVATING FACTORS, SOME NAUSEA ASSOCIATED...SIMILAR TO HER PREVIOUS MIGRAINE HEADACHES PFSH Past Medical History Hx Anticoagulant Therapy: Yes Arthritis: Yes Asthma: No Autoimmune Disease: No Blood Disorders: No Anxiety: No Depression: No Heart Rhythm Problems: No Cancer: No Cardiovascular Problems: Yes (htn) High Cholesterol: No Chemotherapy: No Chest Pain: No Congestive Heart Failure: No COPD: No Cerebrovascular Accident: No Diabetes: No Diminished Hearing: No Deep Vein Thrombosis: Yes (right leg and PE) Endocrine: No Gastrointestinal Disorders: No GERD: No Glaucoma: Yes Genitourinary: No Headaches: Yes (Migraines) Hepatitis: No Hiatal Hernia: No Heparin Induced Thrombocytopen: No Hypertension: Yes Immune Disorder: No Inguinal Hernia: Yes (right side repair) Implanted Vascular Access Dvce: No Kidney Stones: No Musculoskeletal: Yes (Leg & back) Psychiatric: No Reproductive: No Respiratory: Yes (PE) Immunizations Current: Yes Migraines: Yes Myocardial Infarction: No Radiation Therapy: No Renal Failure: No Seizures: No Sickle Cell Disease: No Sleep Apnea: No Thyroid Disease: No Ulcer: No PNEUMOCCOCAL Vaccine (Year): 2010 Menopausal: Yes Tubal Ligation: Yes Past Surgical History Abdominal Surgery: Yes (HERNIA REPAIR) AICD: No Appendectomy: Yes Arteriovenous Shunt: No Cardiac Surgery: No Cholecystectomy: No Ear Surgery: No Endocrine Surgery: No Eye Surgery: Yes (Detached retina) Genitourinary Surgery: No Gynecologic Surgery: Yes (Hysterectomy) Hysterectomy: Yes Insulin Pump: No Joint Replacement: No Oral Surgery: No Pacemaker: No Thoracic Surgery: Yes Other Surgery: Yes Social History Alcohol Use: No Tobacco Use: No Substance Use: No Allergies-Medications (Allergen,Severity, Reaction): Coded Allergies: Tetanus Toxoid (Verified Allergy, Severe, RASH/HIVES, 10/02/16) Codeine (Verified Allergy, Intermediate, AMS, 10/02/16) *MDRO Multi-Drug Resistant Organism (Unverified Adverse Reaction, Unknown , 10/03/16) MRSA (buttock wound) - 04/2014 MRSA PCR Screens NEGATIVE - 10/30/14, 11/01/14, 10/02/16 CLEARED PER INFECTION CONTROL PROTOCOL Reported Meds & Prescriptions Reported Meds & Active Scripts Active Flexeril (Cyclobenzaprine HCl) 10 Mg Tab 10 Mg PO TID Fioricet (Uppmaatgty-Ljpvtxrkibdbt-Oazysgrk) 50-300-40 Mg Cap 1 Cap PO Q4H PRN Tramadol (Tramadol HCl) 50 Mg Tab 50 Mg PO Q6H PRN Reported Aspirin 81 Mg Chew 81 Mg CHEW ONCE Pantoprazole (Pantoprazole Sodium) 20 Mg Tab 20 Mg PO DAILY Fluticasone Nasal [place] 50 Mcg/Act Naspr 50 Mcg .ROUTE BID 50 mcg/spray Amlodipine (Amlodipine Besylate) 10 Mg Tab 10 Mg PO DAILY Timolol Opth Drops 0.5 % Soln 1 Drop EACH EYE BID Lovastatin 20 Mg Tab 20 Mg PO DAILY Lisinopril 20 Mg Tab 20 Mg PO DAILY Review of Systems Except as stated in HPI: all other systems reviewed are Neg Gastrointestinal: Positive: Nausea Neurologic: Positive: Headache Physical Exam Narrative GENERAL: SKIN: Warm and dry. HEAD: Atraumatic. Normocephalic. EYES: Pupils equal and round. No scleral icterus. No injection or drainage. ENT: No nasal bleeding or discharge. Mucous membranes pink and moist. NECK: Trachea midline. No JVD. CARDIOVASCULAR: Regular rate and rhythm. RESPIRATORY: No accessory muscle use. Clear to auscultation. Breath sounds equal bilaterally. GASTROINTESTINAL: Abdomen soft, non-tender, nondistended. Hepatic and splenic margins not palpable. MUSCULOSKELETAL: Extremities without clubbing, cyanosis, or edema. No obvious deformities. NEUROLOGICAL: Awake and alert. No obvious cranial nerve deficits. Motor grossly within normal limits. Five out of 5 muscle strength in the arms and legs. Normal speech. PSYCHIATRIC: Appropriate mood and affect; insight and judgment normal. Data Data Last Documented VS Vital Signs Date Time Temp Pulse Resp B/P Pulse Ox O2 Delivery O2 Flow Rate FiO2 12/27/16 00:41 98.1 71 20 155/[address] Brain W/O Iv Contrast(Rout) (12/27/16 ) Prochlorperazine Inj (Compazine Inj) (12/27/16 01:00) Promethazine Inj (Phenergan Inj) (12/27/16 01:00) Butorphanol Inj (Stadol Inj) (12/27/16 01:00) MDM Medical Decision Making Medical Screen Exam Complete: Yes Emergency Medical Condition: Yes Medical Record Reviewed: Yes Differential Diagnosis TENSION VITALE V MIGRAINE V SINUS V ICH Narrative Course PATIENT HAD NO NEUROLOGICAL DEFICIT, CT NEG FOR ICH BUT POSITIVE FOR LEFT MAXILLARY CHRONIC SINUS DZ. WILL D/C WITH [facility] Diagnosis Primary Impression: SINUSITIS Scripts Amoxicillin-Clavulanate (Augmentin)875-125 Mg Tab1 Tab PO BID #20 TAB Ref 0 Prov:Sadi Bowens MD 12/27/16 Cyclobenzaprine (Flexeril)10 Mg Tab10 Mg PO TID #15 TAB Prov:Sadi Bowens MD 12/27/16 Xjhcgzsdoa-Imttjwqcwnhdo-Smfhwjuq (Fioricet)50-300-40 Mg Cap1 Cap PO Q4H PRN ( HEADACHE) #20 CAP Prov:Sadi Bowens MD 12/27/16 Disposition: 01 DISCHARGE HOME Condition: Stable Sadi Bowens MD Dec 27, 2016 00:50
[2016-12-27] MEDS ORDERED: ASPI81CH CHEW (00:58)
[2016-12-27] MEDS ORDERED: PROMETHAZINE INJ 25 MG/ML VIAL IM ONE (01:00)
[2016-12-27] MEDS ORDERED: PROCHLORPERAZINE INJ 10 MG/2 ML VIAL IM ONE (01:00)
[2016-12-27] MEDS ORDERED: BUTORPHANOL TARTRATE INJ 1 MG/ML VIAL IM ONE (01:00)
[2016-12-27] MEDS ORDERED: KETOROLAC TROMETHAMINE 60 MG/2 ML (IM) VIAL IM ONE (01:00)
[2016-12-27] MEDS ORDERED: CYCL1TAB29 PO (01:10)
[2016-12-27] MEDS ORDERED: BUTA1CAP PO (01:10)
--- NOTE | 2016-12-27 01:42 | RADRPT ---
EXAM DATE/TIME: 12/27/2016 01:16 [facility] COMPARISON: CT BRAIN W/O CONTRAST, December 05, 2014, 18:40. INDICATIONS : Migraine since yesterday, nausea and vomiting. RADIATION DOSE: 62.06 CTDIvol (mGy) MEDICAL HISTORY : Hernia, inguinal. Hypertension. Migraine SURGICAL HISTORY : Hysterectomy. Inguinal hernia repair.Detached retina repair ENCOUNTER: Initial ACUITY: 2 days PAIN SCALE: 10/10 LOCATION: cranial TECHNIQUE: Multiple contiguous axial images were obtained of the head. Using automated exposure control and adj ustment of the mA and/or kV according to patient size, radiation dose was kept as low as reasonably a chievable to obtain optimal diagnostic quality images. DICOM format image data is available electro nically for review and comparison. FINDINGS: CEREBRUM: The ventricles are normal for age. No evidence of midline shift, mass lesion, hemorrhage or acute in farction. No extra-axial fluid collections are seen. POSTERIOR FOSSA: The cerebellum and brainstem are intact. The 4th ventricle is midline. The cerebellopontine angle i s unremarkable. EXTRACRANIAL: The visualized portion of the orbits is intact. Stable calcification and deformity of the left maxill serjio antra with extension into the ipsilateral ethmoid air cells and nasal cavity suggesting some degr ee of polyposis. SKULL: Stable lucent lesion in the anterior right perivertex region. CONCLUSION: 1. Stable appearance of the brain with no acute intracranial process. Minimal cortical atrophy. 2. Stable opacification and deformity of the left maxillary antra with extension into the left ethmoi d air cells and nasal passage. Findings are characteristic of chronic sinusitis with possible polypos is. 3. Stable lucent lesion in the anterior right perivertex region of the skull. Stability over the past 2 years is encouraging for benignity. Jorge Lou MD on December 27, 2016 at 1:37 Board Certified Radiologist. This report was verified electronically.
[2016-12-27] MEDS ORDERED: AUGM875T3 PO (01:49)
[2016-12-27 02:11] VITALS: BP 148/78
== END 2016-12-27 02:13 | disposition home or self-care (01) ==
LOC: PHED 00:27
DX: J32.9 Chronic sinusitis, unspecified (principal)
CPT/HCPCS: 70450; 96372; 99284; J0595; J0780; J2550

== ENCOUNTER 2017-06-20 12:05 | Emergency (ER) | payer OTHER ==
[~2017-06-20] VITALS: Ht 167.6 cm; Wt 93.0 kg
[~2017-06-20 12:05] MED LIST changes: +ASPI-516 CHEW; -ASPI1TAB69 PO; +AUGM875T3 PO; +BUTA1CAP PO; +CYCL10TA PO
[2017-06-20 12:07] VITALS: BP 138/83; PULSE 103; RESP 20; TEMP 100.6; O2SAT 96
[2017-06-20 12:27] VITALS: BP 150/75; PULSE 100; RESP 18; TEMP 100.5; O2SAT 95
--- NOTE | 2017-06-20 12:36 | PD ---
HPI Chief Complaint: Cold / Flu Symptoms Time Seen by Provider: 12:36 Travel History International Travel<30 days: No Contact w/Intl Traveler<30days: No Traveled to known affect area: No History of Present Illness HPI 72-year-old female came to the emergency room with history of fever, cough for past 3 days. Patient says she's been coughing quite a bit and in the process she has started to hurt in her lower back area. Patient has history of lower back pain. She is also experiencing some stress incontinence from the cough. She is not taking any medication for the fever at home. Vital signs in triage was suggestive of a temperature of 100.6 and slight tachycardia. Patient denies of any vomiting or diarrhea. No known sick contacts. She is awake and answering questions appropriately. [facility] Past Medical History Narrative Medical List of her past medical, surgical, social and family history is reviewed from the correction. Hx Anticoagulant Therapy: Yes Arthritis: Yes Asthma: No Autoimmune Disease: No Blood Disorders: No Anxiety: No Depression: No Heart Rhythm Problems: No Cancer: No Cardiovascular Problems: Yes (htn) High Cholesterol: No Chemotherapy: No Chest Pain: No Congestive Heart Failure: No COPD: No Cerebrovascular Accident: No Diabetes: No Diminished Hearing: No Deep Vein Thrombosis: Yes (right leg and PE) Endocrine: No Gastrointestinal Disorders: No GERD: No Glaucoma: Yes Genitourinary: No Headaches: Yes (Migraines) Hepatitis: No Hiatal Hernia: No Heparin Induced Thrombocytopen: No Hypertension: Yes Immune Disorder: No Inguinal Hernia: Yes (right side repair) Implanted Vascular Access Dvce: No Kidney Stones: No Musculoskeletal: Yes (Leg & back) Psychiatric: No Reproductive: No Respiratory: Yes (PE) Immunizations Current: Yes Migraines: Yes Myocardial Infarction: No Radiation Therapy: No Renal Failure: No Seizures: No Sickle Cell Disease: No Sleep Apnea: No Thyroid Disease: No Ulcer: No Influenza Vaccination: No PNEUMOCCOCAL Vaccine (Year): 2010 ?: Not Menopausal: Yes Tubal Ligation: Yes Past Surgical History Abdominal Surgery: Yes (HERNIA REPAIR) AICD: No Appendectomy: Yes Arteriovenous Shunt: No Cardiac Surgery: No Cholecystectomy: No Ear Surgery: No Endocrine Surgery: No Eye Surgery: Yes (Detached retina) Genitourinary Surgery: No Gynecologic Surgery: Yes (Hysterectomy) Hysterectomy: Yes Insulin Pump: No Joint Replacement: No Oral Surgery: No Pacemaker: No Thoracic Surgery: Yes Other Surgery: Yes Social History Alcohol Use: No Tobacco Use: No Substance Use: No Allergies-Medications (Allergen,Severity, Reaction): Coded Allergies: tetanus toxoid, adsorbed (Unverified Allergy, Severe, RASH/HIVES, 02/03/17) codeine (Unverified Allergy, Intermediate, AMS, 02/03/17) *MDRO Multi-Drug Resistant Organism (Unverified Adverse Reaction, Unknown , 10/03/16) MRSA (buttock wound) - 04/2014 MRSA PCR Screens NEGATIVE - 10/30/14, 11/01/14, 10/02/16 CLEARED PER INFECTION CONTROL PROTOCOL Comments List of her allergies reviewed from the nursing note. Reported Meds & Prescriptions Reported Meds & Active Scripts Active Zithromax Z-Pino (Azithromycin) 250 Mg Dspk 250 Mg PO DIRECTED 500 MG (2 tabs) day 1, then 1 tab days 2-5. Tramadol (Tramadol HCl) 50 Mg Tab 50 Mg PO Q6H PRN Reported Aspirin 81 Mg Chew 81 Mg CHEW ONCE Pantoprazole (Pantoprazole Sodium) 20 Mg Tab 20 Mg PO DAILY Fluticasone Nasal [place] 50 Mcg/Act Naspr 50 Mcg .ROUTE BID 50 mcg/spray Amlodipine (Amlodipine Besylate) 10 Mg Tab 10 Mg PO DAILY Timolol Opth Drops 0.5 % Soln 1 Drop EACH EYE BID Lovastatin 20 Mg Tab 20 Mg PO DAILY Lisinopril 20 Mg Tab 20 Mg PO DAILY Narrative Medication List of her home medications reviewed from the nursing note. Review of Systems Except as stated in HPI: all other systems reviewed are Neg General / Constitutional: Positive: Fever Respiratory: Positive: Cough Physical Exam Narrative GENERAL: Awake, alert, moderate distress SKIN: Focused skin assessment warm/dry. HEAD: Atraumatic. Normocephalic. EYES: Pupils equal and round. No scleral icterus. No injection or drainage. ENT: No nasal bleeding or discharge. Mucous membranes pink and moist. NECK: Trachea midline. No JVD. CARDIOVASCULAR: Regular rate and rhythm. No murmur appreciated. RESPIRATORY: No accessory muscle use. Clear to auscultation. Breath sounds equal bilaterally. GASTROINTESTINAL: Abdomen soft, non-tender, nondistended. Hepatic and splenic margins not palpable. MUSCULOSKELETAL: No obvious deformities. No clubbing. No cyanosis. No edema. NEUROLOGICAL: Awake and alert. No obvious cranial nerve deficits. Motor grossly within normal limits. Normal speech. PSYCHIATRIC: Appropriate mood and affect; insight and judgment normal. Data Data Last Documented VS Orders Orders Influenzae A/B Antigen (06/20/17 12:37) Sepsis Workup Initiated (06/20/17 ) Complete Blood Count With Diff (06/20/17 12:51) Comprehensive Metabolic Panel (06/20/17 12:51) Lactic Acid Sepsis Protocol (06/20/17 12:51) Urinalysis - C+S If Indicated (06/20/17 12:51) Blood Culture (06/20/17 12:51) Chest, Single Ap (06/20/17 12:51) Blood Glucose (06/20/17 12:51) Ecg Monitoring (06/20/17 12:51) Iv Access Insert/Monitor (06/20/17 12:51) Oximetry (06/20/17 12:51) Oxygen Administration (06/20/17 12:51) Acetaminophen (Tylenol) (06/20/17 13:00) Sodium Chlor 0.9% 1000 Ml Inj (Ns 1000 M (06/20/17 13:00) Urine Culture (06/20/17 13:00) Ed Discharge Order (06/20/17 14:03) Labs Laboratory Tests Test 06/20/17 13:00 06/20/17 13:10 06/20/17 13:11 Urine Collection Type CATH Urine Color YELLOW Urine Turbidity CLEAR Urine pH 5.5 Urine Specific [place] 1.020 Urine Protein NEG mg/dL Urine Glucose (UA) NEG mg/dL Urine Ketones NEG mg/dL Urine Occult Blood MOD Urine Nitrite NEG Urine Bilirubin NEG Urine Leukocyte Esterase SMALL Urine RBC 0-3 /hpf Urine WBC 3-5 /hpf Urine Bacteria OCC /hpf Microscopic Urinalysis Comment CULTURE INDICATED White Blood Count 4.3 TH/MM3 Red Blood Count 4.65 MIL/MM3 Hemoglobin 12.4 GM/DL Hematocrit 38.3 % Mean Corpuscular Volume 82.5 FL Mean Corpuscular Hemoglobin 26.6 PG Mean Corpuscular Hemoglobin Concent 32.3 % Red Cell Distribution Width 14.2 % Platelet Count 192 TH/MM3 Mean Platelet Volume 7.7 FL Neutrophils (%) (Auto) 62.7 % Lymphocytes (%) (Auto) 20.2 % Monocytes (%) (Auto) 15.9 % Eosinophils (%) (Auto) 0.3 % Basophils (%) (Auto) 0.9 % Neutrophils # (Auto) 2.7 TH/MM3 Lymphocytes # (Auto) 0.9 TH/MM3 Monocytes # (Auto) 0.7 TH/MM3 Eosinophils # (Auto) 0.0 TH/MM3 Basophils # (Auto) 0.0 TH/MM3 CBC Comment DIFF FINAL Differential Comment Blood Urea Nitrogen 12 MG/DL Creatinine 0.88 MG/DL Random Glucose 99 MG/DL Total Protein 8.3 GM/DL Albumin 3.6 GM/DL Calcium Level 8.8 MG/DL Alkaline Phosphatase 78 U/L Aspartate Amino Transf (AST/SGOT) 21 U/L Alanine Aminotransferase (ALT/SGPT) 23 U/L Total Bilirubin 0.4 MG/DL Sodium Level 134 MEQ/L Potassium Level 3.7 MEQ/L Chloride Level 98 MEQ/L Carbon Dioxide Level 29.2 MEQ/L Anion Gap 7 MEQ/L Estimat Glomerular Filtration Rate 76 ML/MIN Lactic Acid Level 0.9 mmol/L [facility] Medical Decision Making Medical Screen Exam Complete: Yes Emergency Medical Condition: Yes Medical Record Reviewed: Yes Differential Diagnosis Sepsis, pneumonia, UTI, viral illness Narrative Course 2 PM blood test results of back and within acceptable limits. Lactic acid is within normal limit. UA is negative for UTI. Chest x-ray does not show any pneumonia. Patient was given Tylenol and 1 L of IV fluid bolus. At this point impression is viral illness for this patient's fever and symptoms. I will discharge her home. Procedures EKG Prior to Arrival: No Diagnosis Primary Impression: Fever Qualified Codes: R50.9 - Fever, unspecified Additional Impressions: Cough Viral illness Referrals: Primary Care Physician Additional Instructions: Take Tylenol/Motrin/ibuprofen/Advil for fever. Return to the ER if condition worsens or any other new concerns. This is a viral infection should resolve in next 2-3 days. Follow-up with your primary care. Drink tea with honey and lemon which would be helpful for the cough as well. Take the medication as per the prescription direction in addition. Med/Other Pt SpecificInfo: Prescription(s) given Scripts Azithromycin (Zithromax Z-Pino) 250 Mg Dspk 250 MG PO DIRECTED for Infection, #1 DSPK 0 Refills 500 MG (2 tabs) day 1, then 1 tab days 2-5. Prov: Alexis Kramer MD 06/20/17 Disposition: 01 DISCHARGE HOME Condition: Stable Alexis Kramer MD Jun 20, 2017 12:36
[2017-06-20 12:50] VITALS: O2SAT 96
[2017-06-20] MEDS ORDERED: SODIUM CHLOR 0.9% 1000 ML INJ 1,000 ML IV ONE (13:00)
[2017-06-20] MEDS ORDERED: ACETAMINOPHEN 325 MG TAB PO ONE (13:00)
[2017-06-20 13:19] LABS: BILIRUBIN, URINE NEG (NEG); BLOOD, URINE MOD (NEG); GLUCOSE,URINE NEG (NEG); KETONE, URINE NEG (NEG); NITRITE,URINE NEG (NEG); PH, URINE 5.5 (5.0-8.5); URINE LEUKOCYTE ESTERASE SMALL (NEG)
[2017-06-20 13:22] LABS: URINE COLOR YELLOW (YELLW/STRAW)
[2017-06-20 13:23] LABS: BACTERIA, URINE OCC /hpf; RBC, URINE 0-3 /hpf (0-3)
[2017-06-20 13:29] LABS: AUTOMATED NEUTROPHIL # 2.7 TH/MM3 (1.8-7.7); BASOPHIL % 0.9 % (0.0-2.0); EOSINOPHIL % 0.3 % (0.0-4.0); HEMATOCRIT 38.3 % (35.0-46.0); HEMOGLOBIN 12.4 GM/DL (11.6-15.3); LYMPH % 20.2 % (9.0-44.0); LYMPHOCYTE # 0.9 TH/MM3 (1.0-4.8); MEAN CELL VOLUME 82.5 FL (80.0-100.0); MEAN CORPUSCULAR HEMOGLOBIN 26.6 PG (27.0-34.0); MEAN CORPUSCULAR HGB CONC 32.3 % (32.0-36.0); MEAN PLATELET VOLUME 7.7 FL (7.0-11.0); MONO % 15.9 % (0.0-8.0); MONOCYTE # 0.7 TH/MM3 (0-0.9); NEUT % 62.7 % (16.0-70.0); PLATELET COUNT 192 TH/MM3 (150-450); RED BLOOD COUNT 4.65 MIL/MM3 (4.00-5.30); RED CELL DISTRIBUTION WIDTH 14.2 % (11.6-17.2); WHITE BLOOD COUNT 4.3 TH/MM3 (4.0-11.0)
--- NOTE | 2017-06-20 13:41 | RADRPT ---
EXAM DATE/TIME: 06/20/2017 12:55 [facility] COMPARISON: No previous studies available for comparison. INDICATIONS : Cough, fever MEDICAL HISTORY : None. SURGICAL HISTORY : None. ENCOUNTER: Initial ACUITY: 4 - 6 days PAIN SCORE: 0/10 LOCATION: Bilateral chest FINDINGS: A single view of the chest demonstrates the lungs to be symmetrically aerated without evidence of mas s, infiltrate or effusion. The cardiomediastinal contours are unremarkable. Osseous structures are intact. CONCLUSION: No acute disease. Rafael Easton MD on June 20, 2017 at 13:39 Board Certified Radiologist. This report was verified electronically.
[2017-06-20 13:42] LABS: CHLORIDE 98 MEQ/L (98-107); SODIUM (NA) 134 MEQ/L (136-145)
[2017-06-20 13:45] LABS: CALCIUM 8.8 MG/DL (8.5-10.1)
[2017-06-20 13:46] LABS: ALBUMIN 3.6 GM/DL (3.4-5.0); BICARBONATE 29.2 MEQ/L (21.0-32.0); BLOOD UREA NITROGEN 12 MG/DL (7-18); GLUCOSE,RANDOM 99 MG/DL (74-106)
[2017-06-20 13:49] LABS: ALT (GPT) 23 U/L (10-53); AST (GOT) 21 U/L (15-37); CREATININE 0.88 MG/DL (0.50-1.00); GLOMERULAR FILTRATION RATE 76 ML/MIN (>89)
[2017-06-20 13:50] LABS: TOTAL BILIRUBIN ADULT 0.4 MG/DL (0.2-1.0); TOTAL PROTEIN 8.3 GM/DL (6.4-8.2)
[2017-06-20 13:51] LABS: ALKALINE PHOSPHATASE 78 U/L (45-117)
[2017-06-20] MEDS ORDERED: ZITHTAB PO (14:03)
[2017-06-20 14:25] VITALS: BP 150/75
== END 2017-06-20 14:29 | disposition home or self-care (01) ==
LOC: PHED 12:05
DX: B34.9 Viral infection, unspecified (principal); M54.5 Low back pain; I10 Essential (primary) hypertension; Z86.718 Personal history of other venous thrombosis and embolism; Z86.711 Personal history of pulmonary embolism; Z79.82 Long term (current) use of aspirin; Z79.899 Other long term (current) drug therapy
CPT/HCPCS: 71010; 80053; 81001; 83605; 85025; 87040; 87086; 87804; 99284; J7030